=== PATIENT | male | born 1950 | race Caucasian/White ===

== ENCOUNTER 2017-05-19 14:23 | Inpatient (IN) | payer MEDICARE ==
--- NOTE | 2017-05-19 16:30 | NUR ---
MS INVENTORY ASSOCIATE AND DRIVER NOTE PATIENT IS DIRECT ADMIT FROM [facility] [address] [facility]. PATIENT HAS REPORTED NO BOWEL MOVEMENT IN TWO DAYS, WITH NAUSEA AND VOMITING PRESENT. CURRENTLY NO EPISODE OF NAUSEA OR VOMITING NOTED. ON ROOM AIR TOLERATING WELL AT 99%. LEFT AC 18G INTACT AND PATENT NO REDNESS OR SWELLING NOTED. ABLE TO COMMUNICATE NEEDS. FULL CODE. NO ISOLATION. NO KNOWN ALLERGIES. HISTORY OF ANXIETY AND FORMER SMOKER 12 YEARS AGO. NO SKIN ISSUES PRESENT. ALL BELONGINGS DOCUMENTED FOR AND AT BEDSIDE WITH PATIENT. PATIENT REFUSES FLU/PNA VACCINE AT THIS TIME. NO SOB OR DISTRESS NOTED. CALL LIGHT WITHIN REACH. PATIENT STATES BACK/ABDOMINAL PAIN 08/10. AWAITING MD ADMITTING ORDERS AT THIS TIME. WILL CONTINUE TO MONITOR
[2017-05-19 17:00] VITALS: BP 127/78
[2017-05-19] MEDS ORDERED: TEMAZEPAM 15 MG CAPSULE PO PRN (17:30)
[2017-05-19] MEDS ORDERED: HYDROCODONE/APAP 5/325MG 1 EACH TABLET PO PRN (17:30)
[2017-05-19] MEDS ORDERED: Z GUARD REMEDY 2 OZ OINT TP PRN (17:30)
[2017-05-19] MEDS ORDERED: ONDANSETRON HCL/PF 4 MG/2 ML VIAL IVP PRN (17:30)
[2017-05-19] MEDS ORDERED: ACETAMINOPHEN 325 MG TABLET PO PRN (17:30)
[2017-05-19] MEDS ORDERED: MAG HYDROX/AL HYDROX/SIMETH 30 ML UDC PO PRN (17:30)
[2017-05-19] MEDS ORDERED: ENOXAPARIN SODIUM 40 MG/0.4 ML DISP.SYRIN SQ SCH (17:30)
[2017-05-19] MEDS ORDERED: MAGNESIUM HYDROXIDE 30 ML UDC PO PRN (17:30)
[2017-05-19] MEDS ORDERED: ZOLPIDEM TARTRATE 5 MG TABLET PO PRN (17:30)
[2017-05-19] MEDS: IV NS 0.9% 1,000 ML IV SCH (18:16)
[2017-05-19] MEDS ORDERED: MORPHINE SULFATE INJ 4 MG/ML DISP.SYRIN IV PRN (18:30)
--- NOTE | 2017-05-19 18:45 | NUR ---
MS RN CLOSING NOTE PATIENT RESTING AT THIS TIME. NO SOB OR DISTRESS NOTED. CALL LIGHT WITHIN REACH AT ALL TIMES. NO PAIN AT THIS TIME. NO SOB OR DISTRESS NOTED. ALL DUE MEDICATIONS GIVEN ORDERED. ALL NURSING CARE NEEDS ATTENDED TO NEEDED. WILL ENDORSE TO SOCIAL SCIENCE TEACHER NURSE FOR SUE
[2017-05-19] MEDS: PIPERACILLIN /TAZOBACTAM 2.25 G in IV D5W 50 ML IV SCH (18:52)
[2017-05-19] MEDS: ENOXAPARIN SODIUM 30 MG/0.3 ML DISP.SYRIN SQ SCH (18:56)
--- NOTE | 2017-05-19 19:20 | NUR ---
MS/RN NOTES RECEIVED PT. LYING IN BED. PT. IS AWAKE, ALERT AND ORIENTED X4. BREATHING EVEN AND UNLABORED ON ROOM AIR. NO SOB, RESPIRATORY DISTRESS OR COMPLAINTS OF PAIN NOTED AT THIS TIME. PT. WITH LEFT AC PERIPHERAL IV PRESENT, PATENT AND INTACT ADMINISTERING TO PT. NS @ 100ML/HR. PT. STATES HE'S TOLERATING CLEAR LIQUIDS WELL AND IS PASSING GAS. BED LOCKED AND IN LOWEST POSITION, SIDE RAILS UP X2, BED ALARM ON, CALL LIGHT WITHIN REACH, WILL CONTINUE TO MONITOR.
[2017-05-19 20:00] VITALS: BP 138/72
[2017-05-20] MEDS: PIPERACILLIN /TAZOBACTAM 2.25 G in IV D5W 50 ML IV SCH ×5 (00:17→23:39)
[2017-05-20] MEDS: IV NS 0.9% 1,000 ML IV SCH ×2 (05:38→13:30)
[2017-05-20 06:09] LABS: BASOPHILS % (AUTO) 0.2 % (0.0-2.0); EOSINOPHILS % (AUTO) 0.2 % (0.0-6.0); HEMATOCRIT 40 % (39-51); HEMOGLOBIN 13.9 g/dL (13.5-17.5); LYMPHOCYTES # (AUTO) 0.8 /CMM (0.8-4.8); LYMPHOCYTES % (AUTO) 17.1 % (20.0-44.0); MEAN CORPUSCULAR HEMOGLOBIN 30 PG (26.0-33.0); MEAN CORPUSCULAR HGB CONC 35 g/dl (31.0-36.0); MEAN CORPUSCULAR VOLUME 86 fL (80-96); MONOCYTES # (AUTO) 0.5 /CMM (0.1-1.30); MONOCYTES % (AUTO) 11.9 % (2.0-12.0); NEUTROPHILS # (AUTO) 3.2 /CMM (1.8-8.9); NEUTROPHILS % (AUTO) 70.6 % (43.0-81.0); PLATELET COUNT (AUTO) 118 /CMM (150-450); RDW COEFFICIENT OF VARIATION 13.2 (11.5-15.0); RED BLOOD CELL COUNT(AUTO) 4.59 MIL/uL (4.5-6.0); WHITE BLOOD COUNT (AUTO) 4.6 K/uL (4.3-11.0)
--- NOTE | 2017-05-20 06:13 | NUR ---
MS/RN NOTES PT. IS LYING IN BED RESTING. BREATHING EVEN AND UNLABORED ON ROOM AIR. NO SOB, RESPIRATORY DISTRESS OR COMPLAINTS OF PAIN NOTED AT THIS TIME. NO COMPLAINTS OF NAUSEA OR VOMITING NOTED AT THIS TIME AND THROUGHOUT SHIFT. PT. WITH LEFT AC PERIPHERAL IV PRESENT, PATENT AND INTACT ADMINISTERING TO PT. NS @ 100ML/HR. ALL PT. NEEDS MET. BED LOCKED AND IN LOWEST POSITION, SIDE RAILS UP X2, BED ALARM ON, CALL LIGHT WITHIN REACH, WILL ENDORSE TO DAYSHIFT NURSE FOR CONTINUITY OF CARE.
[2017-05-20 06:16] LABS: CALCIUM, SERUM 7.7 mg/dL (8.5-10.1); CREATININE 1.2 mg/dL (0.6-1.3); MAGNESIUM 1.8 mg/dL (1.8-2.4); PHOSPHORUS 2.2 mg/dL (2.5-4.9); POTASSIUM 3.7 mmol/L (3.5-5.1)
--- NOTE | 2017-05-20 07:48 | NUR ---
MS RN OPENING NOTE RECEIVED BEDSIDE SBAR REPORT ON THE PATIENT. PATIENT IS A/O X3, COOPERATIVE, ANXIOUS AT TIMES. PATIENT IS IN BED, BED IS LOCKED IN LOWEST POSITION, SIDE RAILS UP X2. PATIENT IS AMBULATORY AND ORIENTED TO OWN ABILITY. CALL LIGHT WITHIN REACH. PATIENT EDUCATED TO CALL FOR ASSISTANCE USING THE CALL LIGHT AND VERBALIZED UNDERSTANDING. SPO2 ON ROOM AIR 97%. LEFT AC 18G INTACT AND PATENT NO REDNESS OR SWELLING NOTED. ABLE TO COMMUNICATE NEEDS. FULL CODE. NO ISOLATION. NO KNOWN ALLERGIES. HISTORY OF ANXIETY AND FORMER SMOKER 12 YEARS AGO. NO SKIN ISSUES PRESENT. ALL BELONGINGS DOCUMENTED FOR AND AT BEDSIDE WITH PATIENT. NO SOB OR DISTRESS NOTED.DENIES PAIN/DISCOMFORT AT THIS TIME. WILL CONTINUE TO ASESS/MONITOR THROUGHOUT THE SHIFT.
[2017-05-20 08:00] VITALS: BP 125/65
[2017-05-20] MEDS ORDERED: NEUTRA PHOS 1 POWD.PACKET NG ONE (08:30)
[2017-05-20] MEDS ORDERED: NICOTINE PATCH (21MG) 21 MG PATCH.TD24 TD SCH (09:00)
--- NOTE | 2017-05-20 09:23 | NUR ---
PATIENT REFUSED NICOTINE TRANSDERMAL PATCH STATING HE QUIT SMOKING 12 YEARS AGO. [facility] IN PHARMACY NOTIFIED TO REMOVE FROM PATIENT'S EMAR.
[2017-05-20] MEDS ORDERED: METOCLOPRAMIDE HCL 10 MG/2 ML VIAL IV SCH (13:00)
[2017-05-20] MEDS ORDERED: K PHOS NEUTRAL 250 MG TABLET PO SCH ×2 (13:00→17:00)
[2017-05-20] MEDS: K PHOS NEUTRAL 250 MG TABLET PO SCH ×2 (13:30→16:10)
[2017-05-20] MEDS ORDERED: METOCLOPRAMIDE HCL 10 MG TABLET PO SCH (13:30)
--- NOTE | 2017-05-20 14:47 | NUR ---
CAME TO DISCUSS NG TUBE PLACEMENT AT THE BEDSIDE. PATIENT WAS ASLEEP. PATIENT OPENED HIS EYES AND STATED HE WANTS TO SLEEP NOW. ASK THE NURSE TO COME BACK LATER. WILL RETURN LATER PER PATIENT'S REQUEST. CHARGE NURSE BETY NOTIFIED.
[2017-05-20] MEDS ORDERED: PANTOPRAZOLE 40 MG VIAL IV SCH (15:00)
[2017-05-20 16:00] VITALS: BP 136/72
--- NOTE | 2017-05-20 16:37 | NUR ---
ATTEMPTED TO PLACE AN NG TUBE ORDERED. PATIENT REFUSED IN THE MIDDLE OF THE PROCEDURE STATING" TAKE THAT THING OUT OF MY NOSE, I DON'T WANT IT". RISKS AND BENEFITS DISCUSSED. PATIENT REFUSED. EDGARDO CHAVES WORKING WITH DR. SEAY NOTIFIED. NO NEW ORDERS RECEIVED AT THIS TIME.
--- NOTE | 2017-05-20 18:18 | NUR ---
patient has a bowel movement with a small, formed brown stool. SILVER RECOVERY OPERATOR Suzy notified. C-diff stool collection order canceled as per Suzy's order
--- NOTE | 2017-05-20 18:24 | NUR ---
received order from Suzy CHAVES to change fluids to D5NS at 100ml/hr since the patient is NPO
--- NOTE | 2017-05-20 18:38 | NUR ---
MS RN CLOSING NOTE PATIENT IS A/O X3, COOPERATIVE, ANXIOUS AT TIMES. PATIENT IS IN BED, BED IS LOCKED IN LOWEST POSITION, SIDE RAILS UP X2. PATIENT IS AMBULATORY AND ORIENTED TO OWN ABILITY. BRP. PATIENT HAD TWO BOWEL MOVEMENTS. FIRST BOWEL MOVEMENT WAS LOOSE AND C-DIFF STOOL COLLECTION WAS ORDERED. PATIENT HAD SECOND BOWEL MOVEMENT OF FORMED, SMALL BROWN STOOL. REPORTED TO GI TEAM/ANDIE REYNOSO. C-DIFF ORDER CANCELLED. CALL LIGHT WITHIN REACH. PATIENT EDUCATED TO CALL FOR ASSISTANCE USING THE CALL LIGHT AND VERBALIZED UNDERSTANDING. SPO2 ON ROOM AIR 98%. LEFT AC 18G INTACT AND PATENT NO REDNESS OR SWELLING NOTED. ABLE TO COMMUNICATE NEEDS. FULL CODE. NO ISOLATION. NO KNOWN ALLERGIES. NPO. REFUSED NG PLACEMENT. NO SOB OR DISTRESS NOTED.DENIES PAIN/DISCOMFORT AT THIS TIME. WILL ENDORSE TO THE SUPERVISOR HEAVY EQUIPMENT NURSE FOR SUE.
--- NOTE | 2017-05-20 19:01 | NUR ---
Endorsed to Shauna shift nurse manager RN
--- NOTE | 2017-05-20 19:37 | NUR ---
MS/RN NOTES RECEIVED PT. LYING IN BED, AWAKE, ALERT AND ORIENTED X4. BREATHING EVEN AND UNLABORED ON ROOM AIR. NO SOB, RESPIRATORY DISTRESS OR COMPLAINTS OF PAIN NOTED AT THIS TIME. PT. WITH LEFT AC 18 GAUGE PERIPHERAL IV PRESENT, PATENT AND INTACT. PT. REMAINS NPO AT THIS TIME. PER DAYSHIFT NURSE PT. REFUSED NG TUBE INSERTION MD AWARE. BED LOCKED AND IN LOWEST POSITION, SIDE RAILS UP X2, BED ALARM ON, CALL LIGHT WITHIN REACH, WILL CONTINUE TO MONITOR.
[2017-05-20 20:00] VITALS: BP 143/80
[2017-05-20] MEDS ORDERED: IV D5/ 0.9% NACL 1,000 ML IV ONE (20:00)
--- NOTE | 2017-05-20 20:49 | NUR ---
MS/RN NOTES CLARIFIED WITH ANDIE REYNOSO TO CLARIFY NPO STATUS AND ORDERS FOR REGLAN PO MEDICATIONS AND IV FLUIDS. PER ANDIE REYNOSO NEW ORDERS: PT. CAN BE NPO EXCEPT MEDICATIONS AND REGLAN 10MG MEDICATION SHOULD BE ADMINISTERED IV NOT PO. PT. WILL BE RE-EVALUATED IN THE MORNING AFTER RECEIVING 1 BAG OF D5NS @ 100ML/HR ORDERED. WILL CARRY OUT ORDERS. WILL CONTINUE TO MONITOR.
[2017-05-20] MEDS: ENOXAPARIN SODIUM 30 MG/0.3 ML DISP.SYRIN SQ SCH (21:47)
[2017-05-20] MEDS ORDERED: METOCLOPRAMIDE HCL 10 MG/2 ML VIAL ONE (21:54)
[2017-05-20] MEDS: METOCLOPRAMIDE HCL 10 MG/2 ML VIAL IV SCH (22:21)
[2017-05-21] MEDS: METOCLOPRAMIDE HCL 10 MG/2 ML VIAL IV SCH ×2 (06:28→12:30)
[2017-05-21] MEDS: PIPERACILLIN /TAZOBACTAM 2.25 G in IV D5W 50 ML IV SCH ×2 (06:28→12:00)
--- NOTE | 2017-05-21 06:50 | NUR ---
MS/RN NOTES PT. IS LYING IN BED RESTING, BREATHING EVEN AND UNLABORED ON ROOM AIR. NO SOB, RESPIRATORY DISTRESS OR COMPLAINTS OF PAIN NOTED AT THIS TIME. PT. WITH LEFT AC 18 GAUGE PERIPHERAL IV PRESENT, PATENT AND INTACT. PT. REMAINS NPO AT THIS TIME. ALL PT. NEEDS MET. BED LOCKED AND IN LOWEST POSITION, SIDE RAILS UP X2, BED ALARM ON, CALL LIGHT WITHIN REACH, WILL ENDORSE TO DAYSHIFT NURSE FOR CONTINUITY OF CARE.
--- NOTE | 2017-05-21 07:35 | NUR ---
RN NOTES RECEIVED PATIENT IN BED, ASLEEP, EASILY AROUSABLE DURING CARE. RESPIRATIONS EVEN AND UNLABORED, DENIES ANY PAIN OR DISCOMFORT AT THIS TIME, CONTINUED ON PAIN MANAGEMENT. IV ACCESS TO LAC PATENT AND INTACT, NO REDNESS OR INFILTRATION NOTED. SAFETY MEASURES IN PLACE,CALL LIGHT WITHIN EASY REACH WILL CONTINUE TO MONITOR
[2017-05-21 07:56] LABS: BASOPHILS % (AUTO) 0.5 % (0.0-2.0); EOSINOPHILS % (AUTO) 0.3 % (0.0-6.0); HEMATOCRIT 40 % (39-51); HEMOGLOBIN 14.1 g/dL (13.5-17.5); LYMPHOCYTES % (AUTO) 24.7 % (20.0-44.0); MEAN CORPUSCULAR HEMOGLOBIN 30 PG (26.0-33.0); MEAN CORPUSCULAR HGB CONC 35 g/dl (31.0-36.0); MEAN CORPUSCULAR VOLUME 87 fL (80-96); MONOCYTES # (AUTO) 0.5 /CMM (0.1-1.30); MONOCYTES % (AUTO) 11.4 % (2.0-12.0); NEUTROPHILS # (AUTO) 2.6 /CMM (1.8-8.9); NEUTROPHILS % (AUTO) 63.1 % (43.0-81.0); PLATELET COUNT (AUTO) 107 /CMM (150-450); RDW COEFFICIENT OF VARIATION 12.8 (11.5-15.0); RED BLOOD CELL COUNT(AUTO) 4.63 MIL/uL (4.5-6.0); WHITE BLOOD COUNT (AUTO) 4.1 K/uL (4.3-11.0)
[2017-05-21 08:00] VITALS: BP 138/73
[2017-05-21 08:05] LABS: CALCIUM, SERUM 7.8 mg/dL (8.5-10.1); CREATININE 1.1 mg/dL (0.6-1.3); PHOSPHORUS 3.1 mg/dL (2.5-4.9); POTASSIUM 3.5 mmol/L (3.5-5.1)
--- NOTE | 2017-05-21 11:30 | NUR ---
RN NOTES DISCUSSED PLAN OF CARE WITH TABBER KEISHA, PER TABBER PT WILL BE SEEN BY GI PRIOR TO MEDICAL CLEARANCE FOR DISCHARGE, PT INFORMED OF PLAN OF CARE, PT STATES "I WANT TO LEAVE, I WANT TO BE DISCHARGED"
--- NOTE | 2017-05-21 12:20 | NUR ---
RN NOTES/AMA PATIENT STATING "I WANT TO BE RELEASED, TAKE THIS OUT (POINTING TO IV SITE) I AM GOING TO GO NOW" ANDIE VALDES ON UNIT, INFORMED PT WANTS TO BE DISCHARGED, TRACTOR MECHANIC APPRENTICE TALKED TO PT AND REVIEWED PLAN OF CARE, PT CONTINUES TO STATE "I DONT WANT TO WAIT, TAKE THIS OUT I AM LEAVING" PER TRACTOR MECHANIC APPRENTICE PT TO LEAVE AGAINST MEDICAL ADVICE, IV REMOVED, ALL BELONGINGS ACCOUNTED FOR, PATIENT LEFT UNIT AGAINST MEDICAL ADVICE, PAPERWORK SIGNED. PATIENT AWAKE ALERT AND VERBALLY RESPONSIVE, RESPIRATIONS EVEN AND UNLABORED, DENIES ANY PAIN AT THIS TIME
== END 2017-05-21 12:45 | disposition left against medical advice (07) | DRG 388 ==
LOC: MED 16:11
PROVIDERS: ADMIT Internal Medicine; ATTEND Internal Medicine
DX: K56.7 Ileus, unspecified (principal); N17.0 Acute kidney failure with tubular necrosis; K52.9 Noninfective gastroenteritis and colitis, unspecified; F41.9 Anxiety disorder, unspecified; F12.90 Cannabis use, unspecified, uncomplicated; F17.200 Nicotine dependence, unspecified, uncomplicated; E83.39 Other disorders of phosphorus metabolism; E83.51 Hypocalcemia
CPT/HCPCS: 36415; 74018; 80048-TC; 82040-TC; 83735-TC; 84100-TC; 85025-TC; 87081-TC; C9113; J1650; J2270; J2543; J2765; J7030; J7042; J7060; J8597

== ENCOUNTER 2023-11-14 01:48 | Emergency (ER) | payer MEDICARE ==
[~2023-11-14] VITALS: Ht 177.8 cm; Wt 72.6 kg
[2023-11-14] MEDS ORDERED: ONDANSETRON HCL/PF 4 MG/2 ML VIAL ONE ×2 (02:02→04:08)
[2023-11-14] MEDS: ONDANSETRON HCL/PF 4 MG/2 ML VIAL IVP ONE (02:17)
[2023-11-14 02:20] LABS: BASOPHILS # (AUTO) 0.1 K/uL (0.0-0.2); EOSINOPHILS # (AUTO) 0.2 K/uL (0.0-0.7); EOSINOPHILS % (AUTO) 3.6 % (0.0-6.0); HEMATOCRIT 44 % (39-51); HEMOGLOBIN 14.4 g/dL (13.5-17.5); LYMPHOCYTES # (AUTO) 1.3 K/uL (0.8-4.8); LYMPHOCYTES % (AUTO) 19.6 % (20.0-44.0); MEAN CORPUSCULAR HEMOGLOBIN 30 PG (26.0-33.0); MEAN CORPUSCULAR HGB CONC 33 g/dl (31.0-36.0); MEAN CORPUSCULAR VOLUME 90 fL (80-96); MONOCYTES # (AUTO) 0.5 K/uL (0.1-1.30); MONOCYTES % (AUTO) 6.7 % (2.0-12.0); NEUTROPHILS # (AUTO) 4.7 K/uL (1.8-8.9); NEUTROPHILS % (AUTO) 69.1 % (43.0-81.0); PLATELET COUNT (AUTO) 178 K/uL (150-450); RED BLOOD CELL COUNT(AUTO) 4.86 MIL/uL (4.5-6.0); RED CELL DISTRIBUTION WIDTH 14.4 % (11.5-15.0); WHITE BLOOD COUNT (AUTO) 6.8 K/uL (4.3-11.0)
[2023-11-14 02:32] LABS: INR 1.02 (0.91-1.10); PARTIAL THROMBOPLASTIN TIME 27.8 SEC (24.3-34.3); PROTHROMBIN TIME 10.8 SECS (9.2-11.1)
[2023-11-14 02:33] LABS: ALANINE AMINOTRANSFERASE 46 U/L (12-78); ALBUMIN 3.6 g/dL (3.4-5.0); ALKALINE PHOSPHATASE 95 U/L (46-116); ASPARTATE AMINOTRANSFERASE 24 U/L (15-37); BILIRUBIN,DIRECT 0.4 mg/dL (0.0-0.2); BILIRUBIN,TOTAL 2.1 mg/dL (0.2-1.0); CARBON DIOXIDE 27 mmol/L (21-32); CHLORIDE 104 mmol/L (98-107); CREATININE 1.4 mg/dL (0.6-1.3); GLUCOSE 105 mg/dL (74-106); POTASSIUM 4.1 mmol/L (3.5-5.1); SODIUM SERUM 139 mmol/L (136-145); TOTAL PROTEIN, SERUM 6.9 g/dL (6.4-8.2); UREA NITROGEN, BLOOD 29 mg/dL (7-18)
[2023-11-14] MEDS: ONDANSETRON HCL/PF 4 MG/2 ML VIAL IV ONE (04:12)
[2023-11-14] MEDS ORDERED: ONDA4TAB5 PO (04:50)
[2023-11-14 05:26] VITALS: BP 125/75; TEMP 97.8; O2SAT 96
== END 2023-11-14 05:55 | disposition home or self-care (01) ==
LOC: ER 01:56
DX: R11.0 Nausea (principal); Z95.5 Presence of coronary angioplasty implant and graft; Z86.59 Personal history of other mental and behavioral disorders
CPT/HCPCS: 99285; 96374; 71045; 93005; 96376; 85025; 80048; 80076; 36415; 84484 ×2; 85730; J2405 ×2